=== PATIENT | female | born 1980 | race Two or more races ===

== ENCOUNTER 2020-02-29 13:16 | Emergency (ER) | payer OTHER ==
[~2020-02-29] VITALS: Ht 157.5 cm; Wt 75.0 kg
[2020-02-29] MEDS ORDERED: ONDANSETRON HCL 4MG/2ML INJ IV STA (13:27)
[2020-02-29] MEDS ORDERED: MORPHINE SULFATE 4 MG/ML CPJ (NOT FOR IM USE) IV STA (13:27)
[2020-02-29] MEDS ORDERED: SODIUM CHLORIDE 0.9% 1,000 ML IV ONE (13:27)
[2020-02-29] MEDS ORDERED: ETOMIDATE 2MG/ML 10ML VIAL IV ONE (14:30)
[2020-02-29] MEDS ORDERED: KETOROLAC 30MG/ML VIAL IV ONE (15:15)
[2020-02-29] MEDS ORDERED: FENTANYL CITRATE/PF 50MCG/ML 2ML VIAL IV ONE (15:15)
[2020-02-29] MEDS ORDERED: ONDANSETRON HCL 4MG/2ML INJ IV ONE (15:15)
[2020-02-29 16:59] VITALS: BP 122/85
== END 2020-02-29 17:04 | disposition home or self-care (01) ==
LOC: EEVIPCON 13:16 → ER 13:16
DX: S42.401A Unspecified fracture of lower end of right humerus, initial encounter for closed fracture (principal); W01.0XXA Fall on same level from slipping, tripping and stumbling without subsequent striking against object, initial encounter; Y93.89 Activity, other specified; Y92.238 Other place in hospital as the place of occurrence of the external cause; Y99.8 Other external cause status
CPT/HCPCS: 24600; 73070; 73080; 73090; 82962; 96374; 96375; 99152; 99285; J1885; J2270; J2405; J3010; J3490; J7030

== ENCOUNTER → 2020-03-27 | Outpatient (CLI) | payer OTHER | END | disposition home or self-care (01) | LOC: MRI 10:22 | PROVIDERS: ATTEND Specialist | DX: R60.9 Edema, unspecified (principal); M25.521 Pain in right elbow | CPT/HCPCS: 73221 ==

== ENCOUNTER → 2020-04-16 | Outpatient (CLI) | payer BC | END | disposition home or self-care (01) | LOC: LAB 12:16 | PROVIDERS: ATTEND Nurse Practitioner Acute Care | DX: Z03.818 Encounter for observation for suspected exposure to other biological agents ruled out (principal) | CPT/HCPCS: U0003-CS ==